=== PATIENT | female | born 1980 | race African-American/Black ===

== ENCOUNTER 2019-06-11 06:20 | Day surgery (SDC) | payer OTHER ==
[~2019-06-11] VITALS: Ht 162.6 cm; Wt 76.2 kg
[2019-06-11] MEDS ORDERED: LACTATED RINGERS 1,000 ML IV SCH (07:00)
[2019-06-11] MEDS ORDERED: ALBU18HF2 IH (07:48)
[2019-06-11] MEDS ORDERED: IBUP-2030 PO (07:48)
[2019-06-11] MEDS ORDERED: IBUP-2028 PO (07:48)
[2019-06-11 08:02] LABS: UCG SCREEN NEGATIVE
[2019-06-11] MEDS ORDERED: FENTANYL CITRATE/PF 50MCG/ML 2ML VIAL ONE (10:33)
[2019-06-11] MEDS ORDERED: LIDOCAINE HCL 1% 20ML VIAL (Pyxis) INJ ONE (10:33)
[2019-06-11] MEDS ORDERED: PROPOFOL 200MG/20ML VIAL IV ONE (10:33)
[2019-06-11] MEDS ORDERED: CEFAZOLIN SODIUM 1000MG/VIAL ONE ×2 (10:33→10:55)
[2019-06-11] MEDS ORDERED: SODIUM CHLORIDE 0.9% 10ML VIAL ONE ×3 (10:33→11:03)
[2019-06-11] MEDS ORDERED: ROCURONIUM BROMIDE 10MG/ML VIAL 5ML IV ONE (10:33)
[2019-06-11] MEDS ORDERED: MIDAZOLAM HCL 2 MG/2 ML VIAL ONE (10:33)
[2019-06-11] MEDS ORDERED: SUCCINYLCHOLINE CHLORIDE 200MG/10ML IV ONE (10:35)
[2019-06-11] MEDS ORDERED: DEXAMETHASONE 4MG/ML 1ML VIAL ONE (10:58)
[2019-06-11] MEDS ORDERED: METOCLOPRAMIDE HCL 10MG/2ML VIAL ONE (10:59)
[2019-06-11] MEDS ORDERED: ONDANSETRON HCL 4MG/2ML INJ ONE (10:59)
[2019-06-11] MEDS ORDERED: EPHEDRINE SULFATE 50MG/ML VIAL ONE (11:03)
[2019-06-11] MEDS ORDERED: GLYCOPYRROLATE 0.2 MG/ML 2ML VIAL ONE (11:33)
[2019-06-11] MEDS ORDERED: HYDROMORPHONE HCL/PF 2MG/ML CPJ IV PRN (12:15)
[2019-06-11 12:35] VITALS: BP 108/58
== END 2019-06-11 14:30 | disposition home or self-care (01) ==
LOC: OR 06:20
PROVIDERS: ATTEND Obstetrics & Gynecology
DX: N70.11 Chronic salpingitis (principal); N94.89 Other specified conditions associated with female genital organs and menstrual cycle; N73.6 Female pelvic peritoneal adhesions (postinfective); J45.909 Unspecified asthma, uncomplicated
CPT/HCPCS: 58662; 81025; 88305; C1725; J0330; J0690; J1100; J1170; J2250; J2405; J2704; J2765; J3010; J3490